=== PATIENT | male | born 1975 | race Caucasian/White ===

== ENCOUNTER → 2017-06-05 | Outpatient (CLI) | payer BC ==
[~2017-06-05] VITALS: Ht 190.5 cm; Wt 86.4 kg
[~2017-06-05] MED LIST: ALPR0.25 PO; METO25TA35 PO
[2017-06-05 13:06] VITALS: BP 116/79
== END ==
LOC: STAR 11:38
PROVIDERS: ATTEND Internal Medicine Cardiovascular Disease
DX: Z02.9 Encounter for administrative examinations, unspecified (principal)

== ENCOUNTER 2017-06-09 06:17 | Day surgery (SDC) | payer BC ==
[2017-06-09] MEDS ORDERED: SODIUM CHLORIDE 0.9% 1,000 ML IV SCH (06:29)
[2017-06-09] MEDS ORDERED: MIDAZOLAM 1 MG/ML, 5ML ONE (08:01)
[2017-06-09] MEDS ORDERED: LIDOCAINE 2%, 20ML ONE (08:02)
[2017-06-09] MEDS ORDERED: ISOPROTERENOL 0.2MG/ML, 5ML ONE (08:02)
[2017-06-09] MEDS ORDERED: FENTANYL PF 100 MCG/2ML ONE (08:02)
[2017-06-09] MEDS ORDERED: PLEASE ENTER ALLERGIES MC SCH ×2 (11:30)
[2017-06-09] MEDS ORDERED: PLEASE ENTER HEIGHT AND WEIGHT MC SCH (11:30)
== END 2017-06-09 14:05 ==
LOC: CACL 06:17
PROVIDERS: ATTEND Internal Medicine Cardiovascular Disease
DX: I47.1 Supraventricular tachycardia (principal); I10 Essential (primary) hypertension; I44.1 Atrioventricular block, second degree; Z98.890 Other specified postprocedural states; Z88.1 Allergy status to other antibiotic agents
CPT/HCPCS: 93613; 93621; 93623; 93653; 99156; 99157; C1730; C1894; C2630; J2250; J3010; J3490

== ENCOUNTER → 2017-06-19 | Outpatient (CLI) | payer BC | END | disposition home or self-care (01) | LOC: CVU 13:13 | PROVIDERS: ATTEND Internal Medicine Cardiovascular Disease | DX: I37.1 Nonrheumatic pulmonary valve insufficiency (principal) | CPT/HCPCS: 93308; 93321; 93325 ==